=== PATIENT | male | born 1960 | race Caucasian/White ===

== ENCOUNTER 2021-01-24 09:59 | Outpatient (REF) | payer BC, SELFPAY ==
[2021-01-25 11:04] LABS: Urine Cytology See Pathology rpt
== END 2021-01-24 10:00 | disposition home or self-care (01) ==
LOC: HO.LNP 09:59
PROVIDERS: PCP Family Medicine; Visit Provider Urology
DX: C67.9 Malignant neoplasm of bladder, unspecified (principal); N40.1 Benign prostatic hyperplasia with lower urinary tract symptoms
CPT/HCPCS: 52000; 81002; 88112

== ENCOUNTER 2022-01-25 10:51 | Outpatient (REF) | payer BC, SELFPAY ==
[2022-01-25 16:10] LABS: Urine Cytology See Pathology rpt
== END 2022-01-25 10:52 | disposition home or self-care (01) ==
LOC: HO.LNP 10:51
PROVIDERS: PCP Family Medicine; Visit Provider Urology
DX: C67.9 Malignant neoplasm of bladder, unspecified (principal); N40.1 Benign prostatic hyperplasia with lower urinary tract symptoms; N13.8 Other obstructive and reflux uropathy
CPT/HCPCS: 52000; 88112

== ENCOUNTER 2023-01-16 09:39 | Outpatient (REF) | payer BC, SELFPAY ==
[2023-01-16 11:32] LABS: Prostate Specific Antigen 2.07 ng/mL (<0.05-4.0)
== END 2023-01-16 09:40 | disposition home or self-care (01) ==
LOC: HO.LAB 09:39
PROVIDERS: PCP Family Medicine; Visit Provider Urology
DX: Z12.5 Encounter for screening for malignant neoplasm of prostate (principal); N40.1 Benign prostatic hyperplasia with lower urinary tract symptoms
CPT/HCPCS: 36415; 84153

== ENCOUNTER → 2023-01-28 08:58 | Outpatient (BNVA) | payer BC, SELFPAY | PROVIDERS: PCP Family Medicine; Visit Provider Urology | DX: C67.9 Malignant neoplasm of bladder, unspecified (principal) | CPT/HCPCS: 52000 ==

== ENCOUNTER 2024-01-27 09:03 | Outpatient (AMB) | payer BC, SELFPAY ==
--- NOTE | 2024-01-27 09:11 | MHC.OFFVIS ---
Intake Intake Visit Reasons: 1Y Cystoscopy(Bladder Ca) Intake Note: Patient is Present for Cystoscopy Urology Med: None Antibiotic Allergy: Penicillin Blood Thinner: None URO- G Disposable Cystoscope lot: [id number] exp: 08/21/26 Allergies penicillin V Allergy (Unknown, Verified 01/27/24 09:14) itching Penicillins [PCN] Allergy (Unknown, Verified 01/27/24 09:14) UNKNOWN/TOLD CHILD Medication List - Last Reconciled 01/27/24 by Gerardo Irving MD latanoprost 0.005% 1 drp ophthalmic (eye) BEDTIME HPI HPI Comments History of Present Illness Details Rafiq is a pleasant male. He is a patient of . He is seen for the following urologic conditions - bladder cancer Yearly cystoscopy Bladder cancer 2016 low-grade superficial recurrent Diagnosed by Dr. Atkins 2018 TURBT 2016 low-grade superficial bladder cancer Intravesical therapy - induction therapy July 2016, boost therapy 2016 Cystoscopy 01/14 NAD, 01/15 NAD Cytology 01/15 NAD PSA 2020 1.7, 12/19 2.1 PFSH Medical History History of bladder cancer Glaucoma BPH loc w urin obs/LUTS Elevated blood pressure reading Hx of bladder cancer Surgical History History of tonsillectomy Review of Systems Const Denies chills and Denies fever(s) Card Reports no additional complaints and Denies syncope Resp Denies cough GI Denies abdominal pain and Denies heartburn Reports as per HPI and Denies change in libido Neuro Denies syncope Psych Denies change in libido Endo Denies change in libido Physical Exam Const General: cooperative, healthy appearing, comfortable and no acute distress Orientation/consciousness: patient oriented x3 HEENT Face and sinus: Yes normal facial exam Mouth: moist mucous membranes Neck Neck: Yes normal visual inspection, Yes full ROM and Yes trachea midline Chest Chest palpation & inspection: normal inspection of the chest Resp Effort & Inspection: normal respiratory effort, able to speak in complete sentences and no respiratory distress GI Inspection: Yes normal to inspection Back/Spine/Pelvis Cervical Spine: normal cervical lordosis Thoracic/Lumbar Spine: thoracic and lumbar spine normal to inspection Skin General skin exam: no rashes or lesions noted Neuro General: patient oriented x3, gait normal, tone normal and moves all extremities Extrem General: Yes normal to inspection and Yes capillary refill normal Office Procedures Cystoscopy Consent Discussed risk and benefit or proposed procedure with the patient. Information consent for procedure given to the patient. Discussed technical aspects, risks, benefits and alternatives in full. Addressed all of the patient's questions and concerns regarding the procedure. The patient demonstrated knowledge and understanding. They wish to proceed with this procedure. Preparation The patient was prepped in the usual manner. A tempering oven operator was present and in the room. Genitalia was prepped with betadine solution in a sterile manner. Lidocaine Jelly 2% was placed into the urethra and 16Fr flexible Olympus cystoscope was inserted into the meatus after adequate lubrication. Procedure Meatus uncircumcised Urethra anterior and posterior urethra normal Prostatic Urethra prior TURP Bladder examination with retroflexion of cystoscope Bladder Orifices normal shape and position Bladder Capacity median Trabeculations grade 1 Cellule Formation none Diverticulum Formation - Mucosal Erythema irritation with little neovascular vessels Bladder Tumor - 63436-[id number] DISPOSABLE SCOPE URO-G FLEXIBLE SCOPE Procedure code (CPT) selection complete Office Meds lidocaine HCl 2 % mucosal jelly in applicator Performing Provider: Gerardo Irving MD Performing [place] [facility] [place] [facility] Administered by: Ghulam Chen LPN on 01/27/24 09:25 Dose Route Admin Location Dispensed Lot Number Expiration Date NDC Winchman/Crane Operator 10 mL intra-urethral 10 mL nitrofurantoin monohydrate/macrocrystals 100 mg capsule Performing Provider: Gerardo Irving MD Performing Location: [facility] [place] [facility] Administered by: Ghulam Chen LPN on 01/27/24 09:25 Dose Route Admin Location Dispensed Lot Number Expiration Date NDC Winchman/Crane Operator 100 mg PO 1 cap naproxen 500 mg tablet Performing Provider: Gerardo Irving MD Performing Location: [facility] [place] [facility] Administered by: Ghulam Chen LPN on 01/27/24 09:25 Dose Route Admin Location Dispensed Lot Number Expiration Date NDC Winchman/Crane Operator 500 mg PO 1 tab Results AMB Urinalysis, Automated UA Leukoctes 0 Kai/uL Last Edit by MIKAEL Al on 01/27/24 09:20 UA Nitrite Negative Last Edit by MIKAEL Al on 01/27/24 09:20 UA Urobilinogen 0.2 mg/dL Last Edit by Oksana Ruiz, RMA on 01/27/24 09:20 UA Protein 0 mg/dL Last Edit by Oksana Ruiz, RMA on 01/27/24 09:20 UA pH 7.5 Last Edit by Oksana Ruiz, RMA on 01/27/24 09:20 UA Blood 0 Abe/uL Last Edit by Oksana Ruiz, RMA on 01/27/24 09:20 UA Specific [place] 1.005 Last Edit by Oksana Ruiz, RMA on 01/27/24 09:20 UA Ketone Negative Last Edit by Oksana Ruiz, RMA on 01/27/24 09:20 UA Bilirubin 0 mg/dL Last Edit by Oksana Ruiz, RMA on 01/27/24 09:20 UA Glucose 0 mg/dL Last Edit by Oksana Ruiz, A on 01/27/24 09:20 Results Reviewed Results Reviewed: Laboratory Last Values Urine pH (Auto) 7.5 01/27/24 09:13 Specific [place] (Auto) 1.005 01/27/24 09:13 Urine Protein (Auto) 0 mg/dL 01/27/24 09:13 Glucose (UA)(Auto) 0 mg/dL 01/27/24 09:13 Urine Ketones (Auto) Negative 01/27/24 09:13 Urine Blood (Auto) 0 Abe/uL 01/27/24 09:13 Urine Nitrite (Auto) Negative 01/27/24 09:13 Urine Bilirubin (Auto) 0 mg/dL 01/27/24 09:13 Urine Urobilinogen (Auto) 0.2 mg/dL 01/27/24 09:13 Leukocyte Esterase (Auto) 0 Kai/uL 01/27/24 09:13 Assessment & Plan Assessment & Plan (1) Bladder cancer: Code(s): C67.9 - Malignant neoplasm of bladder, unspecified (2) BPH loc w urin obs/LUTS: Code(s): N40.1 - Benign prostatic hyperplasia with lower urinary tract symptoms Plan Six-month follow-up Orders: Orders AMB Urinalysis Automated Today Z13.9 - Encounter for screening, unspecified Urine Cytology Today C67.9 - Malignant neoplasm of bladder, unspecified AMB Cystoscopy Today C67.9 - Malignant neoplasm of bladder, unspecified Patient Instructions: Imaging studies, laboratory and physical exam results were discussed and reviewed in detail. No major barriers to patient understanding were identified. An opportunity to ask questions regarding the treatment plan was provided. All questions were answered. The patient expressed understanding and agreement with the above treatment plan. The patient is aware they should contact our office by phone for worsening of their current condition or the appearance of new urologic symptoms. Compliance is encouraged with any medications and followup testing that is ordered. It is a privilege to participate in the urologic care of your patient. If you have any questions or concerns regarding treatment for the above conditions, or other urologic issues, please do not hesitate to contact me. The office telephone contact is [phone]. This note is constructed using voice recognition software. While every effort has been made to ensure accuracy publication distributor errors may have been included. Yours sincerely, Dr Gerardo Irving MD, [facility] - Urology Providers of Expert, Compassionate Care for the Genitourinary System Coding Level of Care Code Est Pt Level 4 (93173) Diagnoses Bladder cancer C67.9 BPH loc w urin obs/LUTS N40.1 CPT Codes Cystoscopy - CPT: 68738-[id number] ([id number])
== END 2024-01-27 09:37 | disposition home or self-care (01) ==
PROVIDERS: PCP Family Medicine; Visit Provider Urology
DX: C67.9 Malignant neoplasm of bladder, unspecified (principal); N40.1 Benign prostatic hyperplasia with lower urinary tract symptoms; Z13.9 Encounter for screening, unspecified
CPT/HCPCS: 52000; 99213

== ENCOUNTER 2024-01-27 09:03 | Outpatient (REF) | payer BC, SELFPAY ==
[2024-01-27 18:35] LABS: Urine Cytology See Pathology rpt
== END 2024-01-27 09:04 | disposition home or self-care (01) ==
LOC: HO.LAB 09:03
PROVIDERS: Visit Provider Urology
DX: C67.9 Malignant neoplasm of bladder, unspecified (principal); N40.1 Benign prostatic hyperplasia with lower urinary tract symptoms
CPT/HCPCS: 52000; 81003; 88112

== ENCOUNTER 2025-01-25 09:01 | Outpatient (AMB) | payer BC, SELFPAY ==
--- NOTE | 2025-01-25 09:08 | MHC.OFFVIS ---
Intake Visit Reasons: cysto Intake Note: Patient is present for Cystoscopy Urology Medication:NONE Antibiotic Allergy:PENICILLINS Blood Thinner:NONE Lot:[id number] Exp:03/04/27 Equity Manager Required: No Allergies penicillin V Allergy (Unknown, Verified 01/25/25 09:10) itching Penicillins [PCN] Allergy (Unknown, Verified 01/25/25 09:10) UNKNOWN/TOLD CHILD HPI Comments Details: Rafiq is a pleasant male. He is a patient of . He is seen for the following urologic conditions - bladder cancer - lower urinary tract symptoms Yearly cystoscopy Normal 12 month follow-up Urination stable Bladder cancer 2016 low-grade superficial recurrent Diagnosed by Dr. Atkins 2017 TURBT 2016 low-grade superficial bladder cancer Intravesical therapy - induction therapy July 2016, boost therapy 2016 Cystoscopy 01/14 NAD, 01/15 NAD Cytology 01/15 NAD PSA 2020 1.7, 12/19 2.1 PFSH Medical History History of bladder cancer Glaucoma BPH loc w urin obs/LUTS Elevated blood pressure reading Hx of bladder cancer Surgical History History of tonsillectomy Office Procedures Cystoscopy Consent Discussed risk and benefit or proposed procedure with the patient. Information consent for procedure given to the patient. Discussed technical aspects, risks, benefits and alternatives in full. Addressed all of the patient's questions and concerns regarding the procedure. The patient demonstrated knowledge and understanding. They wish to proceed with this procedure. Preparation The patient was prepped in the usual manner. A geriatric nurse assistant was present and in the room. Genitalia was prepped with betadine solution in a sterile manner. Lidocaine Jelly 2% was placed into the urethra and 16Fr flexible Olympus cystoscope was inserted into the meatus after adequate lubrication. Procedure Cystoscopy performed using a disposable Introhivevue digital 16 [place] cystoscope. Meatus circumcised Urethra anterior and posterior urethra normal Prostatic Urethra unremarkable Bladder examination with retroflexion of cystoscope Bladder Orifices normal shape and position Bladder Capacity Normal Trabeculations Grade 0 Cellule Formation None Diverticulum Formation None Mucosal Erythema None Bladder Tumor None [id number] DISPOSABLE SCOPE URO-G FLEXIBLE SCOPE Procedure code (CPT) selection complete Office Meds lidocaine HCl 2 % mucosal jelly in applicator Performing Provider: Gerardo Irving MD [place] [facility] [place] [facility] Administered by: Margarita Chew RN on 01/25/25 09:38 Dose Route Admin Location Dispensed Lot Number Expiration Date NDC Lab Scientist 10 mL intra-urethral 10 mL nitrofurantoin monohydrate/macrocrystals 100 mg capsule Performing Provider: Gerardo Irving MD Performing [place] [facility] [place] [facility] Administered by: Margarita Chew RN on 01/25/25 09:38 Dose Route Admin Location Dispensed Lot Number Expiration Date ND Lab Scientist 100 mg PO 1 cap Results AMB Urinalysis, Automated UA Leukoctes 0 Kai/uL Last Edit by TRACIE Green on 01/25/25 09:42 UA Nitrite Negative Last Edit by TRACIE Green on 01/25/25 09:42 UA Urobilinogen 3.5 mg/dL Last Edit by TRACIE Green on 01/25/25 09:42 UA Protein 0 mg/dL Last Edit by TRACIE Green on 01/25/25 09:42 UA pH 6.5 Last Edit by TRACIE Green on 01/25/25 09:42 UA Blood 0 Abe/uL Last Edit by TRACIE Green on 01/25/25 09:42 UA Specific [place] 1.010 Last Edit by TRACIE Green on 01/25/25 09:42 UA Ketone Negative Last Edit by TRACIE Green on 01/25/25 09:42 UA Bilirubin 0 mg/dL Last Edit by TRACIE Green on 01/25/25 09:42 UA Glucose 0 mg/dL Last Edit by TRACIE Green on 01/25/25 09:42 Results Reviewed Results Reviewed: Laboratory Last Values Urine pH (Auto) 6.5 01/25/25 09:42 Specific [place] (Auto) 1.010 01/25/25 09:42 Urine Protein (Auto) 0 mg/dL 01/25/25 09:42 Glucose (UA)(Auto) 0 mg/dL 01/25/25 09:42 Urine Ketones (Auto) Negative 01/25/25 09:42 Urine Blood (Auto) 0 Abe/uL 01/25/25 09:42 Urine Nitrite (Auto) Negative 01/25/25 09:42 Urine Bilirubin (Auto) 0 mg/dL 01/25/25 09:42 Urine Urobilinogen (Auto) 3.5 mg/dL 01/25/25 09:42 Leukocyte Esterase (Auto) 0 Kai/uL 01/25/25 09:42 Assessment & Plan Assessment & Plan (1) BPH loc w urin obs/LUTS: Code(s): N40.1 - Benign prostatic hyperplasia with lower urinary tract symptoms Category: Medical (2) Bladder cancer: Code(s): C67.9 - Malignant neoplasm of bladder, unspecified Category: Medical Plan Twelve month follow-up check cysto Orders: Orders AMB Urinalysis Automated 01/25/25 Z13.9 - Encounter for screening, unspecified AMB Cystoscopy 01/25/25 C67.9 - Malignant neoplasm of bladder, unspecified Patient Instructions: This note is constructed using voice recognition software. While every effort has been made to ensure accuracy department store door greeter errors may have been included. Imaging studies, laboratory and physical exam results were discussed and reviewed in detail. No major barriers to patient understanding were identified. An opportunity to ask questions regarding the treatment plan was provided. All questions were answered. The patient expressed understanding and agreement with the above treatment plan. The patient is aware they should contact our office by phone for worsening of their current condition or the appearance of new urologic symptoms. Compliance is encouraged with any medications and followup testing that is ordered. It is a privilege to participate in the urologic care of your patient. If you have any questions or concerns regarding treatment for the above conditions, or other urologic issues, please do not hesitate to contact me. The office telephone contact is [phone]. Sincerely, Dr Gerardo Irving MD, [facility] - Urology Compassionate Specialist Care for the Genitourinary System Coding Level of Care Code Est Pt Level 4 (92891) Diagnoses BPH loc w urin obs/LUTS N40.1 Bladder cancer C67.9 CPT Codes Cystoscopy - CPT: 27109-[id number] ([id number])
== END 2025-01-25 10:29 | disposition home or self-care (01) ==
LOC: HO.HUSH 09:01
PROVIDERS: PCP Family Medicine; Visit Provider Urology
DX: C67.9 Malignant neoplasm of bladder, unspecified (principal); Z13.9 Encounter for screening, unspecified
CPT/HCPCS: 52000; 99214

== ENCOUNTER → 2025-01-25 09:01 | Outpatient (BNVA) | payer BC, SELFPAY | PROVIDERS: PCP Family Medicine; Visit Provider Urology | DX: C67.9 Malignant neoplasm of bladder, unspecified (principal); N40.1 Benign prostatic hyperplasia with lower urinary tract symptoms | CPT/HCPCS: 52000; 81003 ==